=== PATIENT | female | born 1985 | race Caucasian/White ===

== ENCOUNTER → 2017-03-29 | Outpatient (REF) | payer OTHER ==
[~2017-03-29] MED LIST: ACET50TA PO; MOTR200T44 PO; STUATAB PO
== END ==
LOC: M LAB REF 10:19
PROVIDERS: ATTEND Advanced Practice Midwife
DX: Z12.4 Encounter for screening for malignant neoplasm of cervix (principal)

== ENCOUNTER → 2019-04-18 | Outpatient (CLI) | payer OTHER ==
[~2019-04-18] MED LIST changes: -ACET50TA PO; +MAPA500T2 PO
[2019-04-20 14:10] LABS: HPV HYBRID CAPTURE II Negative (Negative)
== END ==
LOC: M SMT 09:37
PROVIDERS: ATTEND Advanced Practice Midwife
DX: Z12.4 Encounter for screening for malignant neoplasm of cervix (principal)
CPT/HCPCS: 36415; 87624; G0123